=== PATIENT | male | born 1965 | race Hispanic/Latino ===

== ENCOUNTER 2022-10-07 06:59 | Emergency (ER) | payer BC ==
[~2022-10-07] VITALS: Ht 170.2 cm; Wt 84.8 kg
[2022-10-07 07:09] VITALS: O2SAT 96
[2022-10-07] MEDS ORDERED: DEXAMETHASONE SOD PHOS INJ 4 MG/ML SDV IM ONE (07:45)
[2022-10-07] MEDS ORDERED: GUAIFENESIN-CO118 ML PO (07:50)
[2022-10-07] MEDS ORDERED: DEXAMETHASONE SOD PHOS INJ 4 MG/ML SDV ONE (07:52)
== END 2022-10-07 08:16 | disposition home or self-care (01) ==
LOC: FSED 07:25
DX: R05.9 Cough, unspecified (principal); J06.9 Acute upper respiratory infection, unspecified; R51.9 Headache, unspecified
CPT/HCPCS: 83518; 87400; 99282; J1100

== ENCOUNTER 2024-04-25 21:58 | Emergency (ER) | payer OTHER ==
[~2024-04-25] VITALS: Ht 170.2 cm; Wt 84.8 kg
[~2024-04-25 21:58] MED LIST: CELEBREX200 MG PO; GUAIFENESIN-CO118 ML PO
[2024-04-25 22:49] VITALS: PULSE 84; RESP 20
[2024-04-25 23:05] VITALS: TEMP 99.9; O2SAT 94
[2024-04-25] MEDS: IBUPROFEN 600 MG TAB PO STA (23:54)
[2024-04-26] MEDS ORDERED: BENZONATATE100 MG PO (00:28)
[2024-04-26] MEDS ORDERED: ZITHROMAX250 MG PO (00:29)
[2024-04-26] MEDS ORDERED: VENTOLIN HFA18 GM INH (00:30)
[2024-04-26] MEDS: AZITHROMYCIN 250 MG TAB PO ONE (00:55)
== END 2024-04-26 00:56 | disposition home or self-care (01) ==
LOC: FSED 22:06
DX: R50.9 Fever, unspecified (principal); J40 Bronchitis, not specified as acute or chronic; R05.9 Cough, unspecified; R53.1 Weakness
CPT/HCPCS: 71046; 99284

== ENCOUNTER 2024-08-10 14:11 | Emergency (ER) | payer OTHER ==
[~2024-08-10] VITALS: Ht 170.2 cm; Wt 86.2 kg
[~2024-08-10 14:11] MED LIST changes: +BENZONATATE100 MG PO; +VENTOLIN HFA18 GM INH; +ZITHROMAX250 MG PO
[2024-08-10] MEDS ORDERED: DIPHENHYDRAMINE25 M2 PO (15:07)
[2024-08-10] MEDS ORDERED: VENTOLIN HFA18 GM INH (15:07)
[2024-08-10] MEDS ORDERED: ZITHROMAX250 MG PO (15:07)
[2024-08-10] MEDS ORDERED: BENZONATATE100 MG PO (15:07)
[2024-08-10] MEDS ORDERED: NASACORT16.9 ML (15:07)
[2024-08-10 15:17] VITALS: PULSE 85; RESP 16; TEMP 99.5; O2SAT 94
== END 2024-08-10 15:17 | disposition home or self-care (01) ==
LOC: FSED 14:18
DX: R05.9 Cough, unspecified (principal); J40 Bronchitis, not specified as acute or chronic; J30.9 Allergic rhinitis, unspecified; R09.89 Other specified symptoms and signs involving the circulatory and respiratory systems; R09.81 Nasal congestion; Z11.52 Encounter for screening for COVID-19
CPT/HCPCS: 0223U; 71045; 83518; 87400; 99284